=== PATIENT | female | born 1975 | race African-American/Black ===

== ENCOUNTER 2021-11-02 16:55 | Emergency (ER) | payer OTHER ==
[2021-11-02 17:17] VITALS: BP 125/81; PULSE 91; TEMP 97; BMI 31.8
[2021-11-02] MEDS ORDERED: KETOROLAC TROMETHAMINE 30 MG/1 ML VIAL IM ONE (18:17)
[2021-11-02] MEDS ORDERED: KETOROLAC TROMETHAMINE 30 MG/1 ML VIAL ONE (18:18)
== END 2021-11-02 18:26 | disposition home or self-care (01) ==
LOC: JERFT 16:55 → JER 16:55 → JERFT 18:26
PROC: 0H9BXZZ Drainage of Right Upper Arm Skin, External Approach (ICD-10-PCS; principal; 2021-11-02)
PROC: 3E0233Z Introduction of Anti-inflammatory into Muscle, Percutaneous Approach (ICD-10-PCS; 2021-11-02)
DX: L02.413 Cutaneous abscess of right upper limb (principal)
CPT/HCPCS: 99284-25